=== PATIENT | male | born 1945 | race Caucasian/White ===

== ENCOUNTER 2016-12-27 18:17 | Observation (INO) | payer MEDICARE, OTHER ==
[~2016-12-27] VITALS: Ht 180.3 cm; Wt 78.4 kg
[2016-12-27 18:27] VITALS: BP 161/78; PULSE 76; RESP 12; O2SAT 99
--- NOTE | 2016-12-27 18:32 | ED.REPORT ---
HPI-General Illness Date of Service December 27, 2016 ED Provider: Josafat SamaniegoO. A healthy 71 year old male presents to the ED via EMS accompanied by his reporting three syncopal episodes onset this evening, while sitting in the sun after drinking a martini. The patient's reportedly asked him a question, then noticed he was unresponsive and his eyes were glazed over. He preceded to make "gurgling" noises with possible seizure-like activity. When the patient awoke he was alert and oriented until the next similar episode occurred. All three episodes lasted approximately two minutes in total. The patient currently reports fatigue and dizziness. He denies chest pain, SOB, headache, nausea, vomiting, or other symptoms. EMS found the patient alert and oriented with a BP of 142/80 and otherwise normal vital signs. He has never had similar symptoms in the past. Nursing Notes Stated Complaint: SEIZURE LIKE ACTIVITY Chief Complaint: General Complaint Nursing Notes Reviewed: Yes Allergies: Coded Allergies: No Known Allergies (Unverified , 12/27/16) No Active Prescriptions or Reported Meds General Time Seen by MD: 18:31 Chief Complaint Other (Syncope) Hx Obtained From: Patient, Spouse Arrived By: Ambulance Sudden in Onset?: Yes Onset Occurred: 1 - 4 hours ago Symptom Duration: 1 - 15 minutes Severity: Current: No pain currently Severity: Maximum: No pain Recent Healthcare: No recent doctor visit Similar Sx Previous: No Past Medical History Past Medical History None reported Past Surgical History None reported Smoking History Unknown if Ever Smoker Social History Other Social History: Good social support Ambulatory Status Independent Review of Systems Full Review of Systems Constitutional: Reports: Fatigue, Denies: Fever Respiratory: Denies: Non-productive cough, Shortness of breath Cardiovascular: Denies: Chest pain GI: Denies: Diarrhea, Nausea, Vomiting Neurologic: Reports: Dizziness, Seizure (Possible), Syncope, Denies: Headache Complete sys rev & neg: except as marked. Physical Exam Vital Signs Vital Signs Date Time Temp Pulse Resp B/P Pulse Ox O2 Delivery O2 Flow Rate FiO2 12/27/16 19:51 71 16 148/82 97 Room Air 12/27/16 18:27 36.6 76 12 161/78 99 Room Air Initial VS: Reviewed ENT: Conjunctiva normal, No scleral icterus Neck: Supple, Non-tender, Full range of motion Respiratory: Breath sounds normal, Clear to auscultation, No respiratory distress Cardiovascular: Regular rate & rhythm, Heart sounds normal Abdomen / GI: Soft, Non-tender Skin: Warm, Dry, No cyanosis Psychiatric: Mood/affect normal, Behavior normal, Normal thought content General/Constitutional: Awake, Alert, No acute distress Head / Eyes: Atraumatic, Normocephalic, EOMI Neurologic: Oriented X3, Speech NL, No motor deficits, No sensory deficits, CN II - XII intact Interpretation & Diagnostics Lab Results Interpretation Result Diagram: 12/27/16 1844 12/27/16 1844 Test 12/27/16 18:44 White Blood Count 8.0th/mm3 (3.8-10.1) Red Blood Count 4.60mil/mm3 (4.40-5.80) Hemoglobin 14.4g/dL (13.8-17.2) Hematocrit 41.7% (41.0-50.0) Mean Corpuscular Volume 90.7fL (81-100) Mean Corpuscular Hemoglobin 31.3pg (27.0-35.0) Mean Corpuscular Hemoglobin Concent 34.5% (32.0-37.0) Red Cell Distribution Width 13.4% (12.3-15.4) Platelet Count 175bil/L (150-400) Neutrophils (%) (Auto) 45.0% (40-74) Lymphocytes (%) (Auto) 43.3% (14-46) Monocytes (%) (Auto) 9.3% (4-12) Eosinophils (%) (Auto) 2.0% (0-5) Basophils (%) (Auto) 0.3% (0-3) D-Dimer < 0.50mg/L FEU (<0.50) Sodium Level 139mEq/L (134-144) Potassium Level 3.8mEq/L (3.5-5.2) Chloride Level 100mEq/L (97-108) Carbon Dioxide Level 23mmol/L (18-29) Blood Urea Nitrogen 16mg/dL (8-27) Creatinine 0.80mg/dL (0.76-1.27) Estimat Glomerular Filtration Rate 102mL/min (>59) Glucose Level 129mg/dL (60-99) Calcium Level 9.1mg/dL (8.5-10.1) Total Bilirubin 0.6mg/dL (0.0-1.2) Aspartate Amino Transf (AST/SGOT) 26U/L (0-50) Alanine Aminotransferase (ALT/SGPT) 31U/L (0-44) Alkaline Phosphatase 69U/L (25-160) Troponin T < 0.010ug/L (0.0-0.011) Total Protein 6.9g/dL (6.4-8.4) Albumin 4.2g/dL (3.4-5.0) Alcohols 60mg/dL (0-10) General Lab Results Interp 1: Labs reviewed, CBC normal General Lab Results Interp 2: D-Dimer normal, Alcohol level elevated ECG Interpretation ECG Interpretation: Sinus rhythm rate 70 Time: 19:03 Interpreted by: ED physician CT Head Interpretation IMPRESSION: No acute intracranial abnormality. Dictated by: Solitario Talavera M.D. on 12/27/2016 at 18:57 Study: Head CT no contrast Interpretation / Wet Read by: Interpret - Radiologist Re-Eval/Medical Decision Med Decision/Clinical Course Head CT, labs, EKG reassuring. Patient experienced three unprovoked witnessed syncopal episodes. Consider cardiac dysrhythmia. Will admit to tele/obs bed. Time of Eval: 19:10 Patient Status: Condition improved Re-Evaluation/Progress Note: Discussed with patient CT and lab results, diagnosis, and plan for admit. Patient agrees with plan for care and all questions were addressed. Consultation : Referral / Consult Name: Tino Robert MD Consulted With: Hospitalist Call Returned at: 19:43 Manager Of Broadcast Content: Agrees with eval, Agrees with plan, Accepts admit Counseled Regarding: Diagnosis, Lab results, Need for admission Discharge & Departure Primary Impression: Syncopal episodes Syncope type: unspecified Qualified Code: R55 - Syncope and collapse Disposition: ADMITTED TO HOSPITAL Discharge Condition All VS Reviewed: Yes Condition: Improved Referrals: Cj Ratliff MD (PCP) Gissel Attestation Portions of this note were transcribed by Mary Guerrier. I, Dr. López, personally performed the history, physical exam, and medical decision-making; I reviewed and confirmed the accuracy of the information in the transcribed note. Signed by: Gissel Burt, 12/27/2016, 20:10 copies to: Cj Ratliff MD, Todd P DO December 27, 2016 18:32 MARY GUERRIER December 27, 2016 18:40
[2016-12-27 18:49] LABS: BASOPHILS % (AUTO) 0.3 % (0-3); MONOCYTES % (AUTO) 9.3 % (4-12); Mean Corpuscular Hemoglobin 31.3 pg (27.0-35.0); Mean Corpuscular Volume 90.7 fL (81-100); Platelet Count 175 bil/L (150-400)
--- NOTE | 2016-12-27 19:00 | DRSVH ---
PROCEDURE: CT BRAIN WITHOUT CONTRAST ([id number]) INDICATIONS: seizure, syncope times 2 TECHNIQUE: Noncontrast 4.5 mm thick angled axial sections acquired from the foramen magnum to the vertex, with c oronal reformats. COMPARISON: None. FINDINGS: Image quality: Excellent. CSF spaces: Basal cisterns are patent. No extra-axial fluid collections. The ventricles are symmet cresencio in size and shape. Brain: No intracranial bleeds or masses. There is cerebral volume loss for age, with resultant vent ricular and sulcal prominence. There are periventricular and deep white matter chronic small vessel ischemic changes. There is intracranial internal carotid artery atherosclerosis. Skull and face: Calvarium and visualized facial bones appear intact, without suspicious lesions. Sinuses: Visualized sinuses and mastoids are clear. IMPRESSION: No acute intracranial abnormality. Dictated by: Solitario Talavera M.D. on 12/27/2016 at 18:57 Approved by: Solitario Talavera M.D. on 12/27/2016 at 18:58
[2016-12-27] MEDS: 0.9% Sodium Chloride 1,000 ML IV SCH (19:15)
[2016-12-27 19:18] LABS: TROPONIN T < 0.010 ug/L (0.0-0.011)
[2016-12-27] MEDS ORDERED: Alum-Mag Hydrox-Simeth 30 mL Suspension PO PRN (19:50)
[2016-12-27] MEDS ORDERED: Ondansetron 2 mg/mL 2 mL Inj IVPUSH PRN (19:50)
[2016-12-27] MEDS ORDERED: Polyethylene Glycol (PEG) 17 Gm Powder PO PRN (19:50)
[2016-12-27 19:51] VITALS: BP 148/82; PULSE 71; RESP 16; O2SAT 97
[2016-12-27 20:26] VITALS: BP 147/76; PULSE 72; RESP 16; O2SAT 97
--- NOTE | 2016-12-27 20:50 | PCM.HPMED ---
Subjective Date of Service December 27, 2016 Primary Provider: Admitting Physician: Tino Robert MD Primary Care Physician: Cj Ratliff MD Attending Physician: Tino Robert MD Chief Complaint: Witnessed syncopal episodes History of Present Illness: Mr. Felix Wyatt is a very pleasant 71-year-old gentleman living active lifestyle with no past medical history aside from appendectomy when young, shoulder and upper back surgery roughly 2012, presents to [facility] emergency Department after his witnessed 3 seizure-like episodes. She reports roughly her and her had just finished a martini, which they do every single day he took one head of marijuana which he does daily and they proceeded to walk up their property to a fire pit. He reported that this was slightly more difficult than it should have been, due to dizziness/vertigo. When he reached a fire pit his reports that the patient was unresponsive still sitting up in a slightly stiff position with his head leaning back in his mouth open making apneic / glottal noises upon inspiration, which lasted for roughly 3-5 seconds. She reports that another minute went by after trying to get his attention he mentioned something which neither of them can remember and another one of these episodes happened again, except this time there was a tremor/shake to his head and extremities. During this event he maintained his posterior, did not drool did not bite his tongue eyes wide open, and lasted 3-5 seconds. Another minute went by and a similar episode happened again. At this point the patients screamed, and whether neighbors called 911. The patient only remembers about the time that they are neighbors gathered around. And he only felt tired/dizzy and did not feel like he could make it to the house and that is why he he accepted and EMS visit to the emergency department. This is a first time anything like this is happened to him. He denies taking any other pills or having more to drink than just the one martini and also denies smoking large amounts of marijuana. Currently he denies headache, dizziness, foggy this, change in vision, nausea, vomiting, fever, chills, chest pain, shortness of breath, abdominal pain, constipation, diarrhea. He reports chronic frequent urination, mostly small volume which she has never had worked up by a physician. His reports that he urinates at least once every half hour to an hour. He mentioned upon admission but it up in roughly 2- 1/2 hours since he urinated he has no urge to urinate which is troubling to him. He reports being fatigued since his shoulder surgery. He used to be an avid bicyclist, "addicted to bicycling" is how he described it. Since his shoulder surgery he has declined and activity level and they report in the last 3 months he may have gone on 3 or 4 rides, which is a aguirre difference from 2013. He also reports losing his appetite all day today which is also unusual for him. He denies sick contacts, trauma, weight loss. His and himself drink nightly martini's, small quantity of marijuana intake roughly daily, and smokes tobacco out of a pipe which she has on and off again for a long time. Of note yesterday was the first day of patient's son's , which the patient and his state that this is an emotional time. In the emergency department the patient's vitals are as follows: Temperature 36.6 C, pulse 76, respiratory rate 12, blood pressure 161/78, pulse ox 99% on room air. Labs are fairly unremarkable pertinent negatives are not normal electrolytes, slightly elevated blood glucose at 129, normal liver function tests, negative troponin. CBC completely benign. Toxicology alcohol level was 60, corresponding to the limit of 80. D-dimer is negative. EKG normal sinus rhythm, no acute ST abnormalities. CT without contrast - showed no acute intracranial abnormalities. In the emergency department Patient received IV fluids. Review of Systems: A comprehensive review of systems was conducted with the patient and found to be negative except as above in the History of Present Illness. Allergies Coded Allergies: No Known Allergies (Unverified , 12/27/16) Home Medications None. PMH None reported. Surgical History Rotator cuff surgery. Upper back surgery, unspecified (2012) Appendectomy when young. Family History Mother passed due to stroke. Father passed due to Colon cancer. Brother has schizophrenia. Social History Hx Alcohol Use: Yes (daily martini.) Hx Substance Use: Yes (marijuana, small amounts daily. ) Hx Tobacco Use: Yes Smoking Status: Current Every Day Smoker (pipe smoker. many years of on and off again habit. ) Exam Vital Signs Vital Sign - Last Date Time Temp Pulse Resp B/P Pulse Ox O2 Delivery O2 Flow Rate FiO2 5/22/17 20:26 72 16 147/76 97 Room Air 12/27/16 18:27 36.6 Exam General: Healthy-appearing late middle-aged gentleman lying in bed in no acute distress, well-developed, well-nourished, appropriately interactive. HEENT: Normocephalic, atraumatic. External ears without defect. Pupils equal, round, and reactive to light and accommodation. Anicteric sclerae, moist conjunctivae, and no lid lag. Oropharynx free of erythema and cobble stoning with moist mucosa. Neck: Supple with full range of motion. No jugular venous distension. No bruits. No lymphadenopathy or thyromegaly. Cardiovascular: Regular rate and rhythm with no murmurs, rubs, or gallops appreciated Pulmonary: Clear to auscultation bilaterally with no crackles, wheezes, or rhonchi. Normal respiratory effort with no use of accessory muscles. Abdomen: Bowel tones present. Soft, nontender, nondistended. No hepatosplenomegaly or masses appreciated. Extremities: No clubbing, cyanosis, edema, or lymphadenopathy appreciated. Skin: Normal temperature, turgor, and texture; no rash, ulcers, or subcutaneous nodules appreciated. Neurological: Cranial nerves grossly intact. Normal muscle strength, tone, and bulk. Reflexes, coordination, and sensory function within normal limits. No known gait impairment. Psychiatric: Normal mood and affect. Alert and oriented to person, place, and time. Lab and Diagnostics Result Diagram: 12/27/16184312/27/161843 Assessment & Plan Mr. Felix Borja is a 71-year-old gentleman here after witnessed 3 short- lived seizure like episodes. Patient has several risk factors including alcohol use, marijuana use, recent deconditioning, undiagnosed urinary abnormalities. 1. Pre Syncope, not present on admission. Resolved. - Differential includes: Cardiogenic, Alcohol-related event, vertebrobasilar TIA , marijuana-related event, post-exertional syncope, stress related, visceral reflex, - EKG with normal sinus rhythm and no acute ST elevations or depressions, or other abnormalities. - CT brain without contrast no acute abnormalities. As above - No electrolyte abnormalities. - Prolactin ordered. - Orthostatics ordered. - Continue IV fluids as needed. - Remote telemetry. - Bladder scan. - Thiamine administered. - Gen. diet. - If orthostatics are negative may consider, EEG, tilt table test. - May consider Holter monitor as an outpatient. - No murmur noted on physical exam however may consider echo. 2. Frequent urination, not present on admission. Stable. - Bladder scan ordered. - UA w/ rflx cx pending. - May consider urology workup. Acetaminophen for mild pain when necessary. Bowel regimen Senna and MiraLAX scheduled and PRN. Zofran when necessary for nausea and vomiting. SubQ heparin held for now. SCDs in place. Disposition: Patient has been admitted under observation status. Discharge dependent upon recurrence of symptoms. Will be discharged home when medically stable. Pain Evaluation: Adequate Pain Control Resuscitation Status: CPR: Attempt Resuscitation Attending Statement The patient was seen and examined together with Dr. Saucedo on 12/27 and I agree with the history, exam and plan as outlined in the note above. ROSEMARY SAUCEDO DO December 27, 2016 20:50 Tino Robert MD December 27, 2016 21:20
[2016-12-27 21:19] VITALS: BP 145/84; PULSE 70; RESP 20; O2SAT 96
[2016-12-27 21:23] VITALS: PULSE 70
[2016-12-27 21:38] LABS: APPEARANCE,URINE CLEAR (CLEAR,HAZY); COLOR,URINE YELLOW (YELLOW); OCCULT BLOOD,URINE NEGATIVE (NEGATIVE); UROBILINOGEN,URINE NORMAL (NORMAL)
[2016-12-27] MEDS: Thiamine Inj 100 MG in Dextrose 5% 50 ML IV SCH (23:36)
--- NOTE | 2016-12-27 23:57 | NUR ---
Admit note: Pt from ER, able to ambulate to the bed independently. Appeared steady on feet, pt stated feeling steady and "better" than when in the ER; although pt then stated still feeling "a little weird", describing that as feeling disoriented and unsteady. Alert and oriented x3. Tele SR 70s. Oriented to bed and call light, instructed to call with needs.
[2016-12-28] VITALS (10 sets, daily range): BP systolic 120–145; BP diastolic 66–85; PULSE 54–74; RESP 16–20; O2SAT 93–98
--- NOTE | 2016-12-28 05:11 | NUR ---
Orthos, PVR: Ortho BPs completed: Lying 138/77 HR 61 Sitting 145/85 HR 71 Standing 124/79 HR 74 Night resident aware of results. Post void residual completed: 104 ml residual.
[2016-12-28] MEDS: 0.9% Sodium Chloride 1,000 ML IV SCH ×3 (05:52→19:45)
[2016-12-28 08:40] LABS: Mean Corpuscular Hemoglobin 31.1 pg (27.0-35.0); Mean Corpuscular Volume 90.2 fL (81-100)
[2016-12-28] MEDS: Thiamine Inj 100 MG in Dextrose 5% 50 ML IV SCH (08:47)
--- NOTE | 2016-12-28 09:31 | NUR ---
Social Work-initial assessment/ readiness for discharge: Data:See initial assessment. Pt is a 71 y/o male who was admitted on 12/27/16 for syncope times three per H&P. Pt's insurance is [employer] and PCP is Cj Ratliff MD. EMR reviewed. Pt's readmission score is 0. SW met with pt at bedside to discuss discharge planning, SW role explained. Pt is alert and oriented x3. Pt resides at home with his Sandhya [phone] in single level home with 2 steps to enter. Pt is independent at baseline and does not use any DME. Pt drives at baseline. Pt has no HH or SNF history. 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 but states he has [place] benefits. SW discussed DPOA/ advanced directive, pt confirms he has not completed this, information has been provided. Pt states he has been walking in room, independently. Pt's to provide transport home. SW provided phone number and plan on white board in room. No anticipated discharge needs. SW will continue to follow if needs arise. Assessment:Pt who is independent at baseline. Plan:Pt to discharge home when medically stable via POV. No anticipated discharge needs. SW will continue to follow if needs arise. MEGHA Schwartz Addendum: 12/28/16 at 0934 by AMANDA ANGEL Amended: Links added.
--- NOTE | 2016-12-28 11:11 | NUR ---
Case Management: JOHNSON and Medicare Part D Pamphlet delivered and explained to patient. Original placed in chart; copy left at bedside. Libia Fried RN
--- NOTE | 2016-12-28 11:32 | DRSVH ---
PROCEDURE: X-RAY CHEST, TWO VIEWS ([id number]) INDICATIONS: Possible Aspiration TECHNIQUE: 2 views of the chest were acquired. COMPARISON: None. FINDINGS: Surgical changes and devices: None. Lungs and pleura: No pleural effusions or pneumothorax. Lungs are clear. Mediastinum: Mediastinal contours are normal. Heart size is normal. Bones and chest wall: No suspicious bony abnormalities. Soft tissues appear unremarkable. IMPRESSION: No aspiration. Dictated by: Emanuel Tinoco [facility] Interpreted: Edie Garcia MD on 12/28/2016 at 11:32 Transcribed by: DAVID on 12/28/2016 at 11:32 Approved by: Edie Garcia M.D. on 12/29/2016 at 15:56
--- NOTE | 2016-12-28 13:55 | DRSVH ---
PROCEDURE: MRI STROKE PROTOCOL ([id number]) Pre- and post-contrast brain MRI, non-contrast brain MR angiogram, pre- and postcontrast neck MR christine ogram INDICATIONS: Seizure like episode TECHNIQUE: Brain: Noncontrast axial T1 spin echo, axial T2 fast spin echo, sagittal and axial FLAIR, coronal T2 fast spin echo, axial gradient echo, axial diffusion and ADC through the brain. After the administr ation of contrast, axial 3D VIBE of the cranial vasculature and brain. Brain MRA: Non-contrast 3-D time of flight MR angiogram, with multiple lxbrqtk-jwnrjxvcb-xnfljzoftq (MIP) reformats performed. Neck MRA: Axial and sagittal TruFISP through the neck. Coronal dynamic MR angiogram during administ ration of contrast in the arterial and venous phases, with 3-dimenstional gdodrqu-yjzupqhzy-vlvnmkxrd n (MIP) reformats constructed from subtraction images. COMPARISON: [facility], MR, IAC'S W&W/O CONTRAST[facility] 12/27/2016, 18:47. FINDINGS: Image quality: Excellent. BRAIN: CSF spaces: Ventricles are normal in size and shape. Basal cisterns are patent. No extra-axial flu id collections. Brain: No intracranial bleeds or mass effects. There is mild cerebral volume loss for age. Diffusio n weighted images show no acute ischemic insults. Brainstem appears normal. Normal intravascular fl ow voids are present. No abnormal intracranial enhancement. Skull and face: Calvarial marrow signal is normal. Orbits appear normal. Sinuses: There is mild left maxillary sinus mucosal thickening. The mastoids are clear. BRAIN MR ANGIOGRAM: Anterior circulation: Intracranial internal carotid arteries are normal in size and enhancement. Th e flow within the paired anterior cerebral arteries is normal and symmetric. The flow within the mid dle cerebral arteries is normal and symmetric. The anterior communicating artery is seen. No stenos es, occlusions, or aneurysms. Posterior circulation: The right vertebral artery is dominant. 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 A normal appearing basilar artery is supplied by the right vertebral artery. The flow within the posterior cerebral arteries is normal and symmetric. No stenoses, occlusions, or aneurysms. NECK MR ANGIOGRAM: Carotids: Great vessels demonstrate a conventional anatomy as they arise from the aortic arch. The origins of the common carotid arteries appear patent. The calibers and courses of both common caroti d arteries are normal. The bifurcation regions appear normal bilaterally. The internal carotid stalin evette demonstrate normal course and caliber. Posterior circulation: The origins of the vertebral arteries appear patent. More superior portions of both vertebral arteries demonstrate normal course and caliber, and join to form a normal appearing basilar artery. Miscellaneous: Subclavian arteries appear patent. Pre-contrast images through the neck show no soft tissue abnormalities. IMPRESSION: BRAIN MRI: 1. No acute intracranial abnormality. 2. Mild left maxillary sinus mucosal thickening. BRAIN MR ANGIOGRAM: 1. 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 The right vertebral ar brandon is dominant. 2. Normal anterior circulations. NECK MR ANGIOGRAM: 1. No significant stenosis or occlusion in cervical carotid arteries bilaterally. 2. No significant stenosis or occlusion in cervical vertebral arteries bilaterally. The estimate of stenosis included in the report of the imaging study was calculated using the NASCET method Dictated by: Lise Cormier M.D. on 12/28/2016 at 13:39 Transcribed by: GIRISH on 12/28/2016 at 13:54 Approved by: Lise Cormier M.D. on 12/29/2016 at 10:30
--- NOTE | 2016-12-28 15:10 | NUR ---
Spoke with Maria in patient access at [facility] and this patient is non service connected. He has no P[facility] within the [facility]. This patient also holds MCR and supplemental insurance.
--- NOTE | 2016-12-28 16:20 | PROCED ---
[address] [address] EEG PATIENT: EDU SAMUEL : 1945 MR#: [id number] ADMIT: 12/27/2016 JOB ID: [id number] DATE: 12/28/2016 REQUESTING PHYSICIAN: Dr. Sergio Hurt CLINICAL HISTORY: The patient is a 71-year-old gentleman with three spells after drinking alcohol and using marijuana which resulted in tremulousness. Currently taking Ativan. TECHNICAL DESCRIPTION: This is digital EEG was recorded using a 25 scalp and ear electrode configuration reviewed in bipolar and referential montages. Preformatted in a 10/20 international electrode placement system. DESCRIPTION: While awake and with eyes closed, there are 10 hertz rhythmic and symmetric waveforms seen over the occipital head region which attenuate with eye opening. The patient becomes drowsy at which time there was slowing of the background rhythm. He enters sleep at which time the appropriate sleep architecture is located in both hemispheres. There are no focal lateralizing or epileptiform abnormalities seen throughout the recording. Activation: Photic activation does not reveal any photoparoxysmal discharges and no photic driving. Hyperventilation does not reveal any paroxysmal discharges. Rhythm strip: Regular rate and rhythm. IMPRESSION: Normal electroencephalogram, patient awake and asleep. Normal electroencephalogram does not eliminate the possibility of seizures. Clinical correlation advised.
--- NOTE | 2016-12-28 22:07 | PCM.PNMED ---
Subjective Date of Service December 28, 2016 Subjective Patient has no new complaints. Patient believes that he is more alert and less "foggy" than last night Exam Vital Signs Vital Sign - Last Date Time Temp Pulse Resp B/P Pulse Ox O2 Delivery O2 Flow Rate FiO2 12/28/16 20:47 36.7 57 18 120/66 93 12/28/16 10:13 Room Air Intake and Output 12/27/16 12/27/16 12/28/16 Cumulative From/Thru 15:00 23:00 07:00 12/27/16 18:27 - 12/28/16 05:53 Intake Total 875 ml 875 ml Balance 875 ml 875 ml IV Total 875 ml 875 ml Exam General: Patient is in no apparent distress. He was interviewed and examined while EEG wires were being applied to his head. HEENT: Head is atraumatic and normocephalic. Eyes: Pupils are equally round and reactive to light and accommodation. Extraocular muscles are intact. Sclera are white, anicteric. Subconjunctival mucosa is pink. Ears and nose are unremarkable. Oropharynx: There is no mucosal lesions, there is no thrush, there is no pharyngitis. Neck: Is supple, there are no nodes, or masses or tenderness. Chest: Is clear to auscultation and percussion. There are no rales, rhonchi, wheezes or rubs. Heart: Rate, rhythm is regular. There is no murmur, rub or gallop. Abdomen: Good bowel sounds are present. Abdomen is soft, nontender, no organomegaly or masses were appreciated. Extremities: Are symmetrical and well perfused. There is no edema, there is no cellulitis, no rash. Neurologic: There are no focal neurological deficits. Cranial nerves II through XII are intact. There are no sensory or motor deficits. Psychiatric: Patients mood is calm and shows no sign of agitation. Genital: Deferred Rectal: Deferred Lab and Diagnostics Result Diagram: 12/28/16 0759 12/28/16 0759 X-Rays, CTs and MRIs Caution: Report not yet finalized and possibly incomplete! PROCEDURE: X-RAY CHEST, TWO VIEWS ([id number]) INDICATIONS: Possible Aspiration TECHNIQUE: 2 views of the chest were acquired. COMPARISON: None. FINDINGS: Surgical changes and devices: None. Lungs and pleura: No pleural effusions or pneumothorax. Lungs are clear. Mediastinum: Mediastinal contours are normal. Heart size is normal. Bones and chest wall: No suspicious bony abnormalities. Soft tissues appear unremarkable. IMPRESSION: No aspiration. Dictated by: Emanuel Tinoco RRA Interpreted: Edie Garcia MD on 12/28/2016 at 11: 32 Transcribed by: DAVID on 12/28/2016 at 11:32 Assessment & Plan Mr. Felix Borja is a 71-year-old gentleman here after witnessed 3 short- lived seizure like episodes. Patient has several risk factors including alcohol use, marijuana use, recent deconditioning, undiagnosed urinary abnormalities. 1. Syncope, not present on admission. Prior to admission witnessed at home by the patient's Resolved. - Differential includes: Cardiogenic, Alcohol-related event, vertebrobasilar TIA or CVA, marijuana-related event, post-exertional syncope, stress related, visceral reflex, - EKG with normal sinus rhythm and no acute ST elevations or depressions, or other abnormalities. - CT brain without contrast no acute abnormalities. As above - No electrolyte abnormalities. - Prolactin ordered. - Orthostatics ordered. - Continue IV fluids as needed. Will decrease rate from 100 mL an hour to 80 mL an hour. - Remote telemetry. - Bladder scan. - Thiamine administered IV, will change to by mouth and continue.. - Gen. diet. - As history may be consistent with seizure activity we will check EEG. - We will check MRI stroke protocol. - May consider Holter monitor as an outpatient. - No murmur noted on physical exam however will do echocardiogram. 2. Frequent urination, not present on admission. Stable. - Bladder scan ordered. - UA w/ rflx cx pending. - May consider urology workup. Acetaminophen for mild pain when necessary. Bowel regimen Senna and MiraLAX scheduled and PRN. Zofran when necessary for nausea and vomiting. SubQ heparin held for now. SCDs in place. Disposition: Patient has been admitted under observation status. Discharge dependent upon recurrence of symptoms. Will be discharged home when medically stable. Pain Evaluation: Adequate Pain Control GI Prophylaxis: Not indicated VTE Prophylaxis: Other (The patient is ambulatory and very low risk.) Resuscitation Status: CPR: Attempt Resuscitation LichaSergio smith MD December 28, 2016 22:07
[2016-12-29 01:31] VITALS: BP 115/70; PULSE 58; RESP 18; O2SAT 97
--- NOTE | 2016-12-29 05:03 | NUR ---
Patient denies any further episode like he had prior to arrival. Denies any chest pain. Uneventful night, slept well.
[2016-12-29 05:27] VITALS: BP 131/79; PULSE 57; RESP 18; O2SAT 97
[2016-12-29 05:50] LABS: BASOPHILS % (AUTO) 0.5 % (0-3); EOSINOPHILS % (AUTO) 3.4 % (0-5); MONOCYTES % (AUTO) 9.9 % (4-12); Mean Corpuscular Hemoglobin 31.4 pg (27.0-35.0); Mean Corpuscular Volume 90.5 fL (81-100); NEUTROPHILS % (AUTO) 51.3 % (40-74); Platelet Count 147 bil/L (150-400)
[2016-12-29 06:17] LABS: TROPONIN T 0.01 ug/L (0.0-0.011)
[2016-12-29 06:28] LABS: Magnesium 2.1 mg/dL (1.6-2.6)
[2016-12-29] MEDS: 0.9% Sodium Chloride 1,000 ML IV SCH (07:31)
[2016-12-29 09:14] VITALS: BP 123/73; PULSE 59; RESP 20; O2SAT 99
[2016-12-29 10:32] VITALS: PULSE 55
[2016-12-29] MEDS ORDERED: 0.9% Sodium Chloride 1,000 ML IV SCH (11:00)
[2016-12-29] MEDS ORDERED: Polyethylene Glycol (PEG) 17 Gm Powder PO PRN (11:00)
[2016-12-29] MEDS ORDERED: Alum-Mag Hydrox-Simeth 30 mL Suspension PO PRN (11:00)
[2016-12-29] MEDS ORDERED: Ondansetron 2 mg/mL 2 mL Inj IVPUSH PRN (11:00)
--- NOTE | 2016-12-29 12:41 | DRSVH ---
[facility] [address] [place] [address] Echocardiogram Report Name: EDU SAMUEL CStudy Date: 12/29/2016 Height: 71 in Hospital Exam Location: [facility] Weight: 173 lb Gender: Male BSA: 2.0 m2 : 1945 Age: 71 yrs BP: 131/79 mmHg Reason For Study: Syncope Ordering Physician: Performed By: [facility] Interpretation Summary The left ventricle is normal in size. The ejection fraction is estimated to be 60-65%. There is no LV thrombus. The right ventricle is borderline dilated. The right ventricular systolic function is normal. There is mild tricuspid regurgitation. The right ventricular systolic pressure is estimated at 23 mmHg assuming a right atrial pressure of 3 mm Hg. The ascending aorta is mildly enlarged. Procedure: A two-dimensional transthoracic echocardiogram with color flow and Doppler was performed. The study quality was technically adequate. There is no prior echocardiogram noted for this patient. The patient was in sinus bradycardia with heart rates between 55-59 bpm during the exam. Left Ventricle: Proximal septal thickening is noted. The left ventricle is normal in size. There is no echo evidence for significant left ventricular outflow tract obstruction. There is no thrombus. A false chord is noted (normal variant). The ejection fraction is estimated to be 60-65%. There are no focal wall motion abnormalities. The E/E'is normal. Right Ventricle: The right ventricle is borderline dilated. The right ventricular systolic function is normal. Atria: Both atria are normal in size. There is no Doppler evidence for an interatrial shunt. Mitral Valve: The mitral valve leaflets appear mildly thickened, but open well. There is trace mitral regurgitation. Aortic Valve: There is mild aortic valve sclerosis. The aortic valve is trileaflet. The aortic valve opens well. No aortic regurgitation is present. Tricuspid Valve: The tricuspid valve is normal. There is mild tricuspid regurgitation. The right ventricular systolic pressure is estimated at 23 mmHg assuming a right atrial pressure of 3 mm Hg. Pulmonic Valve: The pulmonic valve is not well seen, but is grossly normal. There is mild pulmonic regurgitation. Great Vessels: The aortic root is normal size. The ascending aorta is mildly enlarged. The aortic arch could not be visualized. The IVC is of normal diameter and collapses greater than 50% with a sniff. This suggests a low right atrial pressure of 3 mm Hg. Pericardium/ Pleura There is no pericardial effusion. MMode/2D Measurements & Calculations LVIDd: 4.7 cm RA long axis LVOT diam LVIDs: 2.8 cm LA A2 area: 15.9 cm FS: 39.2 % LA A4 area: 15.4 cm RA area AoV Opening EPSS: 0.59 cm LA length (vol): 4.4 cm IVSd: 1.0 cm LA vol: 47.1 ml : 15.6 cm Ao root diam LVPWd: 0.89 cm LA vol index RA vol : 40.9 ml Aortic Jxn RA IVC diam: 1.8 cm : 20.6 mm2 asc Aorta Diam: 3.8 cm LV villafana. diameter/BSA LV sys. diameter/BSA RVD1 (basal) (cm/m^2): 2.4 (cm/m^2): 1.4 Doppler Measurements & Calculations Ao V2 max MV E max jerry MV E/A: 1.1 TR max jerry : 124.1 cm/sec : 69.6 cm/sec Med Peak E' Jerry : 224.2 cm/sec Ao max PG MV A max jerry TR max PG : 6.2 mmHg : 66.1 cm/sec E/E' med: 10.7 : 20.1 mmHg Ao mean PG MV P1/2t: 58.5 msec Lat Peak E' Jerry PA V2 max : 80.2 cm/sec LVOT Max Jerry E/E' lat: 6.9 PA mean PG : 98.9 cm/sec E/e' average: 8.8 PA Accel Time PARISH(I,D): 2.5 cm : 0.10 sec sev ratio MV dec time MV P1/2t max jerry Ao V2 mean LV V1 max PG : 0.20 sec : 94.3 cm/sec MVA(P1/2t): 3.8 cm2 Ao V2 VTI: 31.7 cm LV V1 VTI PARISH(V,D): 3.0 cm2 : 21.2 cm PA V2 mean PAIRSH indexed to BSA : 59.7 cm/sec (cm^2/m^2): 1.3 Reading Physician:FATUMA
[2016-12-29 13:19] VITALS: BP 134/65; PULSE 61; RESP 19; O2SAT 93
--- NOTE | 2016-12-29 16:36 | PCM.DIMED ---
Discharge Instructions Date of Service December 29, 2016 Dates of Hospitalization December 27, 2016 at 20:21 Discharge Diagnosis Discharge Diagnosis Syncope etiology undetermined. Diet Discharge Diet: Heart Healthy Activity Discharge Activity: No restrictions (Patient may resume usual activity gradually as tolerated.) Call your provider Call your provider for: Fever or Chills, Shortness of breath, Bleeding, Chest pain, Vomitting, Excessive diarrhea, Weakness (unilateral) Patient Instructions Follow-up Provider: Cj Ratliff MD Follow-up with PCP in: 1 week (Patient needs neurology referral) Sergio Hurt MD December 29, 2016 16:36
[2016-12-29] MEDS ORDERED: Thiamine PO (16:37)
--- NOTE | 2016-12-29 16:38 | PCM.DIMED ---
Discharge Instructions Date of Service December 29, 2016 Dates of Hospitalization December 27, 2016 at 20:21 Discharge Diagnosis Discharge Diagnosis Syncope etiology undetermined. Diet Discharge Diet: Heart Healthy Activity Discharge Activity: No restrictions (Patient may resume usual activity gradually as tolerated.) Call your provider Call your provider for: Fever or Chills, Shortness of breath, Bleeding, Chest pain, Vomitting, Excessive diarrhea, Weakness (unilateral) Patient Instructions Patient Instructions Please limit alcohol consumption to one drink 2-3 per week. Follow-up Provider: Cj Ratliff MD Follow-up with PCP in: 1 week (Patient needs neurology referral) Sergio Hurt MD December 29, 2016 16:38
--- NOTE | 2016-12-29 17:13 | NUR ---
DISCHARGE Pt dc'd home this evening at 1700, amb off unit accompanied by . Pt A&O, vital signs stable, denies any pain and in no apparent distress. IV dc'd intact and all belongings returned. All instructions for diet, activity, medications, prescriptions and follow up reviewed with patient who reports understanding.
--- NOTE | 2016-12-30 01:39 | PCM.DC.MED ---
Discharge Summary Date of Service December 29, 2016 Dates of Hospitalization Date of Hospital Admission December 27, 2016 at 20:21 Date of Discharge: December 29, 2016 Providers: Admitting Physician: Tino Robert MD Primary Care Physician: Cj Ratliff MD Attending Physician: Tino Robetr MD Diagnosis at Time of Discharge Diagnosis at Time of Discharge Syncope etiology undetermined. Procedures XRay, CTs & MRIs Caution: Report not yet finalized and possibly incomplete! PROCEDURE: X-RAY CHEST, TWO VIEWS ([id number]) INDICATIONS: Possible Aspiration TECHNIQUE: 2 views of the chest were acquired. COMPARISON: None. FINDINGS: Surgical changes and devices: None. Lungs and pleura: No pleural effusions or pneumothorax. Lungs are clear. Mediastinum: Mediastinal contours are normal. Heart size is normal. Bones and chest wall: No suspicious bony abnormalities. Soft tissues appear unremarkable. IMPRESSION: No aspiration. Dictated by: Emanuel Tinoco RRA Interpreted: Edie Garcia MD on 12/28/2016 at 11: 32 Transcribed by: DAVID on 12/28/2016 at 11:32 PROCEDURE: MRI STROKE PROTOCOL ([id number]) Pre- and post-contrast brain MRI, non-contrast brain MR angiogram, pre- and postcontrast neck MR angiogram INDICATIONS: Seizure like episode TECHNIQUE: Brain: Noncontrast axial T1 spin echo, axial T2 fast spin echo, sagittal and axial FLAIR, coronal T2 fast spin echo, axial gradient echo, axial diffusion and ADC through the brain. After the administration of contrast, axial 3D VIBE of the cranial vasculature and brain. Brain MRA: Non-contrast 3-D time of flight MR angiogram, with multiple maximum- intensity-projection (MIP) reformats performed. Neck MRA: Axial and sagittal TruFISP through the neck. Coronal dynamic MR angiogram during administration of contrast in the arterial and venous phases, with 3-dimenstional bjpypum-rvqaxbayb-qfyambegmv (MIP) reformats constructed from subtraction images. COMPARISON: [facility], MR, IAC'S W&W/O CONTRAST, 09/14/2011, 7:26. [facility], CT, CT BRAIN WO CON, 12/27/2016, 18:47. FINDINGS: Image quality: Excellent. BRAIN: CSF spaces: Ventricles are normal in size and shape. Basal cisterns are patent. No extra-axial fluid collections. Brain: No intracranial bleeds or mass effects. There is mild cerebral volume loss for age. Diffusion weighted images show no acute ischemic insults. Brainstem appears normal. Normal intravascular flow voids are present. No abnormal intracranial enhancement. Skull and face: Calvarial marrow signal is normal. Orbits appear normal. Sinuses: There is mild left maxillary sinus mucosal thickening. The mastoids are clear. BRAIN MR ANGIOGRAM: Anterior circulation: Intracranial internal carotid arteries are normal in size and enhancement. The flow within the paired anterior cerebral arteries is normal and symmetric. The flow within the middle cerebral arteries is normal and symmetric. The anterior communicating artery is seen. No stenoses, occlusions, or aneurysms. Posterior circulation: The right vertebral artery is dominant. 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 A normal appearing basilar artery is supplied by the right vertebral artery. The flow within the posterior cerebral arteries is normal and symmetric. No stenoses, occlusions, or aneurysms. NECK MR ANGIOGRAM: Carotids: Great vessels demonstrate a conventional anatomy as they arise from the aortic arch. The origins of the common carotid arteries appear patent. The calibers and courses of both common carotid arteries are normal. The bifurcation regions appear normal bilaterally. The internal carotid arteries demonstrate normal course and caliber. Posterior circulation: The origins of the vertebral arteries appear patent. More superior portions of both vertebral arteries demonstrate normal course and caliber, and join to form a normal appearing basilar artery. Miscellaneous: Subclavian arteries appear patent. Pre-contrast images through the neck show no soft tissue abnormalities. IMPRESSION: BRAIN MRI: 1. No acute intracranial abnormality. 2. Mild left maxillary sinus mucosal thickening. BRAIN MR ANGIOGRAM: 1. 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 The right vertebral artery is dominant. 2. Normal anterior circulations. NECK MR ANGIOGRAM: 1. No significant stenosis or occlusion in cervical carotid arteries bilaterally. 2. No significant stenosis or occlusion in cervical vertebral arteries bilaterally. The estimate of stenosis included in the report of the imaging study was calculated using the NASCET method Dictated by: Lise Cormier M.D. on 12/28/2016 at 13:39 Transcribed by: GIRISH on 12/28/2016 at 13:54 Approved by: Lise Cormier M.D. on 12/29/2016 at 10:30 Cardiac Echo Impression Echocardiogram Report Name: FELIX SAMUEL CStudy Date: 12/29/2016 Height: 71 in Hospital Exam Location: [facility] Weight: 173 lb Gender: Male BSA: 2.0 m2 : 1945 Age: 71 yrs BP: 131/79 mmHg Reason For Study: Syncope Ordering Physician: Performed By: [facility] Interpretation Summary The left ventricle is normal in size. The ejection fraction is estimated to be 60-65%. There is no LV thrombus. The right ventricle is borderline dilated. The right ventricular systolic function is normal. There is mild tricuspid regurgitation. The right ventricular systolic pressure is estimated at 23 mmHg assuming a right atrial pressure of 3 mm Hg. The ascending aorta is mildly enlarged. Brief History Mr. Felix Samuel is a very pleasant 71-year-old gentleman living active lifestyle with no past medical history aside from appendectomy when young, shoulder and upper back surgery roughly 2012, presents to [facility] emergency Department after his witnessed 3 seizure-like episodes. She reports roughly her and her had just finished a [employer], which they do every single day he took one head of marijuana which he does daily and they proceeded to walk up their property to a fire pit. He reported that this was slightly more difficult than it should have been, due to dizziness/vertigo. When he reached a fire pit his reports that the patient was unresponsive still sitting up in a slightly stiff position with his head leaning back in his mouth open making apneic / glottal noises upon inspiration, which lasted for roughly 3-5 seconds. She reports that another minute went by after trying to get his attention he mentioned something which neither of them can remember and another one of these episodes happened again, except this time there was a tremor/shake to his head and extremities. During this event he maintained his posterior, did not drool did not bite his tongue eyes wide open, and lasted 3-5 seconds. Another minute went by and a similar episode happened again. At this point the patients screamed, and whether neighbors called 911. The patient only remembers about the time that they are neighbors gathered around. And he only felt tired/dizzy and did not feel like he could make it to the house and that is why he he accepted and EMS visit to the emergency department. This is a first time anything like this is happened to him. He denies taking any other pills or having more to drink than just the one martini and also denies smoking large amounts of marijuana. Currently he denies headache, dizziness, foggy this, change in vision, nausea, vomiting, fever, chills, chest pain, shortness of breath, abdominal pain, constipation, diarrhea. He reports chronic frequent urination, mostly small volume which she has never had worked up by a physician. His reports that he urinates at least once every half hour to an hour. He mentioned upon admission but it up in roughly 2- 1/2 hours since he urinated he has no urge to urinate which is troubling to him. He reports being fatigued since his shoulder surgery. He used to be an avid bicyclist, "addicted to bicycling" is how he described it. Since his shoulder surgery he has declined and activity level and they report in the last 3 months he may have gone on 3 or 4 rides, which is a aguirre difference from 2013. He also reports losing his appetite all day today which is also unusual for him. He denies sick contacts, trauma, weight loss. His and himself drink nightly martini's, small quantity of marijuana intake roughly daily, and smokes tobacco out of a pipe which she has on and off again for a long time. Of note yesterday was the first day of patient's son's , which the patient and his state that this is an emotional time. In the emergency department the patient's vitals are as follows: Temperature 36.6 C, pulse 76, respiratory rate 12, blood pressure 161/78, pulse ox 99% on room air. Labs are fairly unremarkable pertinent negatives are not normal electrolytes, slightly elevated blood glucose at 129, normal liver function tests, negative troponin. CBC completely benign. Toxicology alcohol level was 60, corresponding to the limit of 80. D-dimer is negative. EKG normal sinus rhythm, no acute ST abnormalities. CT without contrast - showed no acute intracranial abnormalities. In the emergency department Patient received IV fluids. Hospital Course Mr. Felix Borja is a 71-year-old gentleman here after witnessed 3 short- lived seizure like episodes. Patient has several risk factors including alcohol use, marijuana use, recent deconditioning, undiagnosed urinary abnormalities. 1. Syncope, not present on admission. Prior to admission witnessed at home by the patient's Resolved. - Differential includes: Cardiogenic, Alcohol-related event, vertebrobasilar TIA or CVA, marijuana-related event, post-exertional syncope, stress related, visceral reflex, - EKG with normal sinus rhythm and no acute ST elevations or depressions, or other abnormalities. - CT brain without contrast no acute abnormalities. As above - No electrolyte abnormalities. - Prolactin ordered. - Orthostatics ordered. - Continue IV fluids as needed. Will decrease rate from 100 mL an hour to 80 mL an hour. - Remote telemetry. - Bladder scan. - Thiamine administered IV, will change to by mouth and continue.. - Gen. diet. - As history may be consistent with seizure activity we will check EEG. - We checked MRI per stroke protocol. This was unremarkable. - May consider Holter monitor as an outpatient. - No murmur noted on physical exam however will do echocardiogram. Echocardiogram was unremarkable. 2. Frequent urination, not present on admission. Stable. - UA normal with no culture indicated - May consider urology workup. As an outpatient Acetaminophen for mild pain when necessary. Bowel regimen Senna and MiraLAX scheduled and PRN. Zofran when necessary for nausea and vomiting. SubQ heparin held for now. SCDs in place. Disposition: Patient is currently, and has been, asymptomatic since admission. Therefore we will discharge home today and plan is to follow-up with his primary care physician for further workup and possible referral to a neurologist. I have stressed the importance of decreasing or quitting altogether his alcohol consumption. I recommended patient stand thiamine 100 mg by mouth daily for another couple weeks and possibly longer. Patient is agreeable to this plan and will follow up with his primary care doctor is significant given appointment. Exam Vital Signs (Last) Date Time Temp Pulse Resp B/P Pulse Ox O2 Delivery O2 Flow Rate FiO2 12/29/16 13:19 36.9 61 19 134/65 93 Room Air Exam General: Patient is in no apparent distress. He has had no recurrent symptoms of what brought him to the hospital. HEENT: Head is atraumatic and normocephalic. Eyes: Pupils are equally round and reactive to light and accommodation. Extraocular muscles are intact. Sclera are white, anicteric. Subconjunctival mucosa is pink. Ears and nose are unremarkable. Oropharynx: There is no mucosal lesions, there is no thrush, there is no pharyngitis. Neck: Is supple, there are no nodes, or masses or tenderness. Chest: Is clear to auscultation and percussion. There are no rales, rhonchi, wheezes or rubs. Heart: Rate, rhythm is regular. There is no murmur, rub or gallop. Abdomen: Good bowel sounds are present. Abdomen is soft, nontender, no organomegaly or masses were appreciated. Extremities: Are symmetrical and well perfused. There is no edema, there is no cellulitis, no rash. Neurologic: There are no focal neurological deficits. Cranial nerves II through XII are intact. There are no sensory or motor deficits. Psychiatric: Patients mood is calm and shows no sign of agitation. Genital: Deferred Rectal: Deferred Test 12/27/16 18:44 12/27/16 21:17 12/27/16 21:30 12/29/16 05:30 D-Dimer < 0.50mg/L FEU (<0.50) Alcohols 60mg/dL (0-10) Urine Color Yellow (YELLOW) Urine Appearance Clear (CLEAR,HAZY) Urine pH 7.0 (5.0-8.0) Urine Specific [place] 1.010 (1.003-1.035) Urine Protein Negativemg/dL (NEG,TRACE) Urine Glucose (UA) Negativemg/dL (NEGATIVE) Urine Ketones Negativemg/dL (NEGATIVE) Urine Occult Blood Negative (NEGATIVE) Urine Nitrite Negative (NEGATIVE) Urine Bilirubin Negative (NEGATIVE) Urine Urobilinogen Normalmg/dL (NORMAL) Urine Leukocyte Esterase Negative (NEGATIVE) Urine RBC 0-2/hpf (0-2) Urine WBC 0-5/hpf (0-5) Urine Epithelial Cells Few/hpf (NONE-MOD) Urine Crystals None seen (NONE SEEN) Urine Bacteria Few/hpf (NONE-FEW) Urine Hyaline Casts None/lpf (NONE) Urine Granular Casts None seen (NONE SEEN) Urine Waxy Casts None seen (NONE SEEN) Urine Red Blood Cell Casts None seen (NONE SEEN) Urine White Blood Cell Casts None seen (NONE SEEN) Urine Mucus None seen (None Seen) Urine Trichomonas None seen (NONE SEEN) Urine Yeast None (NONE SEEN) Urinalysis Comment Amorphous sediment Urine Culture Reflexed Not indicated Prolactin 6.0ng/mL (4.0-15.2) White Blood Count 4.2th/mm3 (3.8-10.1) Red Blood Count 4.43mil/mm3 (4.40-5.80) Hemoglobin 13.9g/dL (13.8-17.2) Hematocrit 40.1% (41.0-50.0) Mean Corpuscular Volume 90.5fL (81-100) Mean Corpuscular Hemoglobin 31.4pg (27.0-35.0) Mean Corpuscular Hemoglobin Concent 34.7% (32.0-37.0) Red Cell Distribution Width 13.1% (12.3-15.4) Platelet Count 147bil/L (150-400) Neutrophils (%) (Auto) 51.3% (40-74) Lymphocytes (%) (Auto) 34.9% (14-46) Monocytes (%) (Auto) 9.9% (4-12) Eosinophils (%) (Auto) 3.4% (0-5) Basophils (%) (Auto) 0.5% (0-3) Sodium Level 140mEq/L (134-144) Potassium Level 4.5mEq/L (3.5-5.2) Chloride Level 105mEq/L (97-108) Carbon Dioxide Level 20mmol/L (18-29) Blood Urea Nitrogen 9mg/dL (8-27) Creatinine 0.70mg/dL (0.76-1.27) Estimat Glomerular Filtration Rate 119mL/min (>59) Glucose Level 97mg/dL (60-99) Calcium Level 8.7mg/dL (8.5-10.1) Magnesium Level 2.1mg/dL (1.6-2.6) Total Bilirubin 0.6mg/dL (0.0-1.2) Aspartate Amino Transf (AST/SGOT) 24U/L (0-50) Alanine Aminotransferase (ALT/SGPT) 25U/L (0-44) Alkaline Phosphatase 59U/L (25-160) Troponin T 0.010ug/L (0.0-0.011) Total Protein 6.0g/dL (6.4-8.4) Albumin 3.6g/dL (3.4-5.0) Discharge Medications Discharge Medications ([Thiamine]) 100 MG TABLET 100 MG PO DAILY Prescribed by: BROOKE HURT MD Followup Plan Disposition: Patient is being discharged home. Discharge Diet: Heart Healthy Discharge Activity: No restrictions (Patient may resume usual activity gradually as tolerated.) Patient Instructions Please limit alcohol consumption to one drink 2-3 per week. Follow-up Provider: Cj Ratliff MD Follow-up with PCP in: 1 week (Patient needs neurology referral) Time spent Time spent on discharging this patient was greater than 35 minutes, over half of which was involved in counseling and coordination of care. Sergio Hurt MD December 30, 2016 01:39
== END 2016-12-29 17:10 | disposition home or self-care (01) ==
LOC: EDBD 18:17 → SED 18:17 → MPC 20:21
PROVIDERS: ADMIT Hospitalist; ATTEND Hospitalist
DX: R55 Syncope and collapse (principal); R35.0 Frequency of micturition; R56.9 Unspecified convulsions; F12.90 Cannabis use, unspecified, uncomplicated; F17.210 Nicotine dependence, cigarettes, uncomplicated
CPT/HCPCS: 36415; 70450; 70549; 70553; 71020; 80048; 80053; 81000; 83735; 84146; 84484; 85025; 85027; 85378; 93005; 95816; 96361; 96374; 96375; 96376; 99285; A9585; C8929; G0378; G0480; J2060; J7030